=== PATIENT | female | born 1940 | race Caucasian/White ===

== ENCOUNTER → 2016-08-16 | Outpatient (CLI) | payer MEDICARE, BC ==
[~2016-08-16] MED LIST: CALCIUM 600MG+D1 TAB PO; CELEXA10 MG PO; FOSAMAX 70MG TA70 MG PO; IRON 27 MG PO; LIPITOR 40MG TA40 MG PO; LUTEIN20 M1 PO; NORCO 325 MG-51 TAB PO; PROPECIA1 MG PO; SYNTHROID 0.0.025 MG PO; TENORMIN 5050 MG/TAB PO; TIMOLOL MALEATE5 M1 OP
== END ==
LOC: MC.RAD 07:00
DX: R92.0 Mammographic microcalcification found on diagnostic imaging of breast (principal); D05.11 Intraductal carcinoma in situ of right breast

== ENCOUNTER 2016-08-29 07:17 | Day surgery (SDC) | payer MEDICARE, BC ==
[2016-08-29] VITALS (7 sets, daily range): BP systolic 128–163; BP diastolic 64–91; PULSE 47–55; TEMP 97.2–98.2
[~2016-08-29] VITALS: Ht 167.6 cm; Wt 77.6 kg
[2016-08-29] MEDS ORDERED: TIMOLOL MALEATE5 M1 OP (08:39)
[2016-08-29] MEDS ORDERED: TENORMIN 5050 MG/TAB PO (08:39)
[2016-08-29] MEDS ORDERED: SYNTHROID 0.0.025 MG PO (08:40)
[2016-08-29] MEDS ORDERED: CELEXA10 MG PO (08:40)
[2016-08-29] MEDS ORDERED: LIPITOR 40MG TA40 MG PO (08:40)
[2016-08-29] MEDS ORDERED: FOSAMAX 70MG TA70 MG PO (08:41)
[2016-08-29] MEDS ORDERED: CALCIUM 600MG+D1 TAB PO (08:41)
[2016-08-29] MEDS ORDERED: LUTEIN20 M1 PO (08:42)
[2016-08-29] MEDS ORDERED: IRON 27 MG PO (08:43)
[2016-08-29] MEDS ORDERED: PROPECIA1 MG PO (08:45)
[2016-08-29] MEDS ORDERED: NORCO 325 MG-51 TAB PO (10:21)
== END 2016-08-29 12:20 | disposition home or self-care (01) ==
LOC: SDCO 07:17
DX: C50.311 Malignant neoplasm of lower-inner quadrant of right female breast (principal); I10 Essential (primary) hypertension; E03.9 Hypothyroidism, unspecified; M81.0 Age-related osteoporosis without current pathological fracture; Z79.899 Other long term (current) drug therapy; Z79.82 Long term (current) use of aspirin
CPT/HCPCS: J0690; J1885; J2405; J2704; J3010; J7120

== ENCOUNTER → 2016-09-20 | Outpatient (CLI) | payer MEDICARE, BC | LOC: COL.RAD 13:12 | DX: C50.911 Malignant neoplasm of unspecified site of right female breast (principal) | CPT/HCPCS: A9541 ==

== ENCOUNTER 2016-09-21 06:42 | Day surgery (SDC) | payer MEDICARE, BC ==
[2016-09-21] VITALS (8 sets, daily range): BP systolic 131–159; BP diastolic 47–86; PULSE 49–54; TEMP 97.2–97.7
[~2016-09-21] VITALS: Ht 167.6 cm; Wt 78.6 kg
== END 2016-09-21 13:25 | disposition home or self-care (01) ==
LOC: SDCO 06:42
DX: C50.311 Malignant neoplasm of lower-inner quadrant of right female breast (principal); E03.9 Hypothyroidism, unspecified; I10 Essential (primary) hypertension; M81.0 Age-related osteoporosis without current pathological fracture; F32.9 Major depressive disorder, single episode, unspecified; Z87.891 Personal history of nicotine dependence; Z90.11 Acquired absence of right breast and nipple
CPT/HCPCS: J0690; J1100; J1170; J2405; J2704; J7120

== ENCOUNTER → 2019-10-22 | Outpatient (CLI) | payer MEDICARE, BC | LOC: MC.RAD 09:48 | DX: N64.1 Fat necrosis of breast (principal); L92.8 Other granulomatous disorders of the skin and subcutaneous tissue; R92.0 Mammographic microcalcification found on diagnostic imaging of breast; Z98.82 Breast implant status; Z85.3 Personal history of malignant neoplasm of breast | CPT/HCPCS: 30634 ==

== ENCOUNTER 2024-01-28 08:11 | Day surgery (SDC) | payer MEDICARE, BC ==
[~2024-01-28] VITALS: Ht 167.6 cm; Wt 79.0 kg
[~2024-01-28 08:11] MED LIST changes: +LR 1,000 ML IV SCH
[2024-01-28] MEDS ORDERED: fentaNYL 50 MCG/ML 2 ML VIAL ONE ×2 (09:01→11:22)
[2024-01-28] MEDS ORDERED: dexAMETHasone 10 MG/ML VIAL ONE ×2 (09:02→12:15)
[2024-01-28] MEDS ORDERED: Glycopyrrolate 0.2 MG/ML 1 ML VIAL ONE (09:02)
[2024-01-28] MEDS ORDERED: Phenylephrine 10 MG/ML VIAL ONE (09:02)
[2024-01-28] MEDS ORDERED: Lidocaine PF 2% (20 MG/ML) 5 ML VIAL ONE (09:02)
[2024-01-28] MEDS ORDERED: NS 100 ML IV ONE (09:02)
[2024-01-28] MEDS ORDERED: Ondansetron 4 MG/2 ML VIAL ONE (09:02)
[2024-01-28] MEDS ORDERED: NS 10 ML IV ONE (09:02)
[2024-01-28 09:23] VITALS: BP 152/84; PULSE 57; TEMP 97.9
[2024-01-28] MEDS ORDERED: ARIMIDEX1 MG PO (09:50)
[2024-01-28] MEDS ORDERED: PEPCID40 MG PO (09:51)
[2024-01-28] MEDS ORDERED: COZAAR 50MG50 MG/TAB PO (09:51)
[2024-01-28] MEDS ORDERED: THE MEDICINE S200 M2 PO (09:54)
[2024-01-28] MEDS ORDERED: VITAMIN D31000 I1 PO (09:54)
[2024-01-28] MEDS ORDERED: MAGNESIUM250 M1 PO (09:54)
[2024-01-28] MEDS ORDERED: ASPIRIN 81M81 MG/TA2 PO (10:40)
[2024-01-28] MEDS ORDERED: CEPHALEXIN500 M1 PO (10:40)
[2024-01-28] MEDS ORDERED: ULTRAM 50MG TAB50 MG PO (10:41)
[2024-01-28] MEDS ORDERED: Rocuronium 50 MG/5 ML Multi-Dose VIAL ONE (11:26)
[2024-01-28] MEDS ORDERED: Lidocaine 1% w EPI (1:100,000) 20 ML Multi-Dose VIAL IJ ONE (11:30)
[2024-01-28] MEDS ORDERED: dexAMETHasone 4 MG/ML VIAL IJ ONE (11:30)
[2024-01-28 12:45] VITALS: BP 164/83; PULSE 53; TEMP 97.2
--- NOTE | 2024-01-28 12:59 | NUR ---
1245: PT TO BAY 8 VIA COT FROM PACU. ALERT AND ORIENTED. VSS. REPORT RECEIVED FROM GERALD NOVAK. FREDRICK WRAP TO RIGHT KNEE OPERATIVE SITE C/D/I. PT DENIES PAIN AND NAUSEA AT THIS TIME. TOLERATING WATER AND REQUESTING APPLESAUCE. NO FURTHER NEEDS NOTED. RESTING IN COT. CALL LIGHT IN REACH. , ALANNA, AT BEDSIDE.
[2024-01-28 13:00] VITALS: BP 155/78; PULSE 54
--- NOTE | 2024-01-28 13:10 | NUR ---
1300: PT ALERT AND ORIENTED. PT DENIES PAIN AND NAUSEA. STATED HER KNEE FEELS "NUMB" EDUCATED PT THAT IS FROM THE BLOCK. PT TOLERATING APPLESAUCE AND WATER. MANAS RODRÍGUEZ IN ROOM SPEAKING WITH PT. VSS. FREDRICK WRAP C/D/I. NO FURTHER NEEDS NOTED. RESTING IN COT. CALL LIGHT IN REACH. , ALANNA, AT BEDSIDE.
[2024-01-28 13:15] VITALS: BP 156/70; PULSE 54
[2024-01-28] MEDS ORDERED: Naloxone 0.4 MG/ML VIAL IV PRN (13:30)
--- NOTE | 2024-01-28 14:00 | NUR ---
1315: PT ALERT AND ORIENTED. VSS. PT DENIES PAIN AND NAUSEA. TOLEATING APPLESAUCE AND WATER. DRESSSING C/D/I. PT ABLE TO MOVE OPERATIVE EXTREMITY. NO FURTHER NEEDS NOTED. RESTING IN COT. CALL LIGHT IN REACH. ALANNA CLAIRE, AT BEDSIDE. 1320: PT AMBULATED TO BATHROOM X1 ASSIST. , ALANNA, ASSISTED PT WITH DRESSING. 1330: PT BACK IN ROOM AT THIS TIME. IV DC'D. DISCHARGE EDUCATION COMPLETED. QUESTIONS WELCOMED AND ANSWERED. PT STATED UNDERSTANDING OF DISCHARGE INSTRUCTIONS. PAPERWORK GIVEN TO PT. 1345: PT OFF UNIT AT THIS TIME. PT DISCHARGED TO HOME WITH , ALANNA, PER PERSONAL VEHICLE.
== END 2024-01-28 13:45 | disposition home or self-care (01) ==
LOC: SDCO 08:11
DX: S83.281A Other tear of lateral meniscus, current injury, right knee, initial encounter (principal); S83.241A Other tear of medial meniscus, current injury, right knee, initial encounter; Z85.3 Personal history of malignant neoplasm of breast; Z87.891 Personal history of nicotine dependence
CPT/HCPCS: J0665; J0690; J1100; J2371; J2405; J2704; J2795; J3010; J7120